=== PATIENT | male | born 1975 | race African-American/Black ===

== ENCOUNTER 2018-03-10 04:51 | Emergency (ER) | payer OTHER ==
[~2018-03-10 04:51] MED LIST: GABA-533 PO; HYDR-3971 PO
== END 2018-03-10 05:21 | disposition left against medical advice (07) ==
LOC: EMS 04:52
DX: M54.9 Dorsalgia, unspecified (principal); Z53.21 Procedure and treatment not carried out due to patient leaving prior to being seen by health care provider

== ENCOUNTER 2019-06-08 15:13 | Emergency (ER) | payer OTHER ==
[~2019-06-08] VITALS: Ht 195.6 cm; Wt 129.6 kg
[2019-06-08 17:55] VITALS: BP 141/88
[2019-06-08] MEDS ORDERED: BACITRACIN 0.9 GM PACKET OINTMENT TP ONE (18:45)
[2019-06-08] MEDS ORDERED: PERTUSS(ACELL),DIPH,TET VAC/PF 0.5 ML VIAL IM ONE (18:45)
== END 2019-06-08 19:13 | disposition home or self-care (01) ==
LOC: EMS 15:15
DX: S61.216A Laceration without foreign body of right little finger without damage to nail, initial encounter (principal); Z87.891 Personal history of nicotine dependence; W45.8XXA Other foreign body or object entering through skin, initial encounter; Y93.89 Activity, other specified; Y92.89 Other specified places as the place of occurrence of the external cause; Y99.8 Other external cause status
CPT/HCPCS: 90471; 90715